=== PATIENT | male | born 1965 | race Caucasian/White ===

== ENCOUNTER 2016-05-20 21:55 | Emergency (ER) | payer BC ==
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
[~2016-05-20 21:55] MED LIST: AUGMENTIN875 M1; IBUPROFEN800 MG PO; JANUMET XR 1001 EACH PO; LIPITOR20 MG PO; LISINOPRIL20 MG PO; NEURONTIN100 MG PO; ULTRAM PO
== END 2016-05-20 23:23 | disposition home or self-care (01) ==
LOC: SED 21:55
DX: S16.1XXA Strain of muscle, fascia and tendon at neck level, initial encounter (principal); S39.012A Strain of muscle, fascia and tendon of lower back, initial encounter; S00.83XA Contusion of other part of head, initial encounter; I10 Essential (primary) hypertension; E11.9 Type 2 diabetes mellitus without complications; Y09 Assault by unspecified means
CPT/HCPCS: 72100; 72125; 99284